=== PATIENT | male | born 1990 ===

== ENCOUNTER 2018-03-30 14:32 | Emergency (ER) | payer SELFPAY ==
[2018-03-30 14:48] VITALS: TEMP 98.1; BMI 33.4
--- NOTE | 2018-03-30 16:02 | RAD ---
HISTORY: chest pain COMPARISON: No prior. TECHNIQUE: Chest, one view. FINDINGS: LUNGS: No focal consolidation. Please note that chest x-ray has limited sensitivity for the detection of pulmonary masses. PLEURA: No significant pleural effusion identified. No definite pneumothorax . CARDIOVASCULAR: The cardiomediastinal silhouette appears within normal limits of size. OSSEOUS STRUCTURES: No acute osseous abnormality identified. VISUALIZED UPPER ABDOMEN: Unremarkable. OTHER FINDINGS: None. IMPRESSION: No focal consolidation, significant pleural effusion, or definite pneumothorax identified.
[2018-03-30 16:21] LABS: BASO # 0.03 K/mm3 (0.0-2.0); BASO % 0.5 % (0.0-3.0); EOS # 0.1 (0.0-0.7); EOS % 1.2 % (1.5-5.0); GRAN # 2.85 (1.4-6.5); GRAN % 49.1 % (50.0-68.0); HEMOGLOBIN 15.6 g/dL (14.0-18.0); LYMPH # 2.3 (1.2-3.4); LYMPH % 40.1 % (22.0-35.0); MEAN CELL VOLUME 86.2 fl (80.0-105.0); MEAN CORPUSCULAR HEMOGLOBIN 31.3 pg (25.0-35.0); MEAN CORPUSCULAR HGB CONC 36.3 g/dl (31.0-37.0); MEAN PLATELET VOLUME 10.4 fl (7.0-11.0); MONO # 0.5 (0.1-0.6); MONO % 9.1 % (1.0-6.0); RBC 4.99 10^6/uL (3.5-6.1); RED CELL DISTRIBUTION WIDTH 12.2 % (11.5-14.5); WHITE BLOOD COUNT 5.8 10^3/ul (4.5-11.0)
[2018-03-30 16:26] LABS: INR 1.04; PARTIAL THROMBOPLASTIN TIME 33.3 Seconds (25.1-36.5); PROTHROMBIN TIME 11.9 SECONDS (9.4-12.5)
[2018-03-30 16:29] LABS: ALB/GLOB RATIO 1.5 (1.1-1.8); ALBUMIN 4.7 g/dL (3.0-4.8); ALT/SGPT 38 U/L (7-56); AST/SGOT 34 U/L (17-59); BLOOD UREA NITROGEN 12 mg/dL (7-21); CALCIUM 9.6 mg/dL (8.4-10.5); GFR NON-AFRICAN AMERICAN > 60; LIPASE 180 U/L (23-300)
[2018-03-30 16:40] LABS: TROPONIN I < 0.01 ng/mL
--- NOTE | 2018-03-30 16:50 | ED PDOC ---
Arrival/HPI - General Historian: Patient - History of Present Illness Narrative History of Present Illness (Text): 03/30/18 16:46 27-year-old male presents today with left-sided chest pain radiating into the left arm for the past 2 days. Patient states the pain is intermittent. Patient states the pain is an achy sensation and a tightness that worsens with certain movements. Patient states occasionally he is feeling short of breath. He denies fevers or chills. Patient states 2 weeks ago he was treated for an upper respiratory tract infection with a Z-Luis. Patient denies palpitations. Patient denies any recent trauma or injury. Patient denies abdominal pain. No nausea vomiting diarrhea constipation. No medications have been taken for pain at home. Patient denies a history of cocaine or drug use. No other complaints. Time/Duration: Other (2 days) <Nikia Hdez - Last Filed: 03/30/18 18:25> <Ervin Mathew - Last Filed: 04/02/18 18:59> - General Chief Complaint: Chest Pain Time Seen by Provider: 03/30/18 15:15 Past Medical History - Provider Review Nursing Documentation Reviewed: Yes - Travel History Have you recently traveled outside [place] w/in the past 3 mons?: No - Psychiatric Hx Anxiety: Yes Hx Substance Use: No - Anesthesia Hx Anesthesia: No Hx Anesthesia Reactions: No Hx Malignant Hyperthermia: No <Nikia Hdez - Last Filed: 03/30/18 18:25> Family/Social History - Physician Review Nursing Documentation Reviewed: Yes Family/Social History: No Known Family HX, Unknown Family HX. denies: Hypertension, CAD/CO, Blood Clots Smoking Status: Never Smoked Hx Alcohol Use: No Hx Substance Use: No <Nikia Hdez - Last Filed: 03/30/18 18:25> Allergies/Home Meds <Nikia Hdez - Last Filed: 03/30/18 18:25> <Ervin Mathew - Last Filed: 04/02/18 18:59> Allergies/Adverse Reactions: Allergies No Known Allergies Allergy (Verified 03/30/18 14:45) Review of Systems - Review of Systems Constitutional: absent: Fatigue, Fevers Respiratory: SOB, Cough Cardiovascular: Chest Pain. absent: Palpitations Gastrointestinal: absent: Abdominal Pain, Constipation, Diarrhea, Nausea, Vomiting Genitourinary Male: absent: Dysuria, Frequency, Hematuria Musculoskeletal: Back Pain. absent: Arthralgias, Neck Pain Skin: absent: Rash, Pruritis Neurological: absent: Headache, Dizziness Psychiatric: Anxiety. absent: Depression, Suicidal Ideation <Nikia Hdez - Last Filed: 03/30/18 18:25> Physical Exam Vital Signs Reviewed: Yes Vital Signs Temp Pulse Resp BP Pulse Ox 03/30/18 14:45 98.1 F 71 19 138/75 H 100 Temperature: Afebrile Blood Pressure: Hypertensive Pulse: Regular Respiratory Rate: Normal Appearance: Positive for: Well-Appearing, Non-Toxic, Comfortable Pain Distress: None Mental Status: Positive for: Alert and Oriented X 3 - Systems Exam Head: Present: Atraumatic Mouth: Present: Moist Mucous Membranes Neck: Present: Normal Range of Motion Respiratory/Chest: Present: Clear to Auscultation, Good Air Exchange, Tender to Palpation (+ ttp over left pectoralis ). No: Respiratory Distress, Accessory Muscle Use Cardiovascular: Present: Regular Rate and Rhythm, Normal S1, S2. No: Murmurs, Tachycardic Abdomen: No: Tenderness, Distention, Peritoneal Signs, Rebound, Guarding Back: Present: Normal Inspection. No: CVA Tenderness, Midline Tenderness, Paraspinal Tenderness Upper Extremity: Present: Normal ROM Lower Extremity: Present: Normal ROM. No: Edema, CALF TENDERNESS Neurological: Present: GCS=15, Speech Normal Skin: Present: Warm, Dry, Normal Color. No: Rashes Psychiatric: Present: Alert, Oriented x 3 <Nikia Hdez T - Last Filed: 03/30/18 18:25> Vital Signs Temp Pulse Resp BP Pulse Ox 03/30/18 17:42 98.1 F 61 18 124/61 99 03/30/18 14:45 98.1 F 71 19 138/75 H 100 <Ervin Mathew - Last Filed: 04/02/18 18:59> Medical Decision Making ED Course and Treatment: 03/30/18 16:48 27yr old male with 2 day history of chest pain. cbc; wnl cmp; wnl trop; wnl ekg; sinus rhythm with marked sinus arrhythmia at 68 bpm normal axis normal intervals no ST elevations d-dimer; negative cxr; LUNGS: No focal consolidation. Please note that chest x-ray has limited sensitivity for the detection of pulmonary masses. PLEURA: No significant pleural effusion identified. No definite pneumothorax . CARDIOVASCULAR: The cardiomediastinal silhouette appears within normal limits of size. OSSEOUS STRUCTURES: No acute osseous abnormality identified. VISUALIZED UPPER ABDOMEN: Unremarkable. OTHER FINDINGS: None. IMPRESSION: No focal consolidation, significant pleural effusion, or definite pneumothorax identified. UA; wnl 03/30/18 17:29 pt reassessment; after toradol patient is feeling much better. denies pain. will d/c home to f/u with PMD. pt most likely with musculoskeletal chest pain advised immediate return is symptoms worsen or persist or if new concerning symptoms develop Impression: Chest pain Motrin every 6 hours as needed for pain Follow up with the primary care physician within the next 2 days Return immediately if symptoms worsen or persist or if new concerning symptoms develop. Reassessment Condition: Re-examined, Improved - Lab Interpretations Lab Results: 03/30/18 16:12 03/30/18 16:12 Lab Results 03/30/18 16:12: WBC 5.8, RBC 4.99, Hgb 15.6, Hct 43.0, MCV 86.2, MCH 31.3, MCHC 36.3, RDW 12.2, Plt Count 183, MPV 10.4, Gran % 49.1 L, Lymph % (Auto) 40.1 H, Charlton % (Auto) 9.1 H, Eos % (Auto) 1.2 L, Baso % (Auto) 0.5, Gran # 2.85, Lymph # (Auto) 2.3, Charl[place] # (Auto) 0.5, Eos # (Auto) 0.1, Baso # (Auto) 0.03 03/30/18 16:12: Sodium 141, Potassium 3.9, Chloride 103, Carbon Dioxide 28, Anion Gap 13, BUN 12, Creatinine 0.9, Est GFR ( Amer) > 60, Est GFR (Non- Af Amer) > 60, Random Glucose 103, Calcium 9.6, Total Bilirubin 1.6 H, AST 34, ALT 38, Alkaline Phosphatase 44, Lactate Dehydrogenase 508, Total Creatine Kinase 205, Troponin I < 0.01, Total Protein 8.0, Albumin 4.7, Globulin 3.2, Albumin/Globulin Ratio 1.5, Lipase 180 03/30/18 16:12: PT 11.9, INR 1.04, APTT 33.3, D-Dimer, Quantitative 114 - RAD Interpretation Radiology Orders: 03/30/18 15:15 CHEST PORTABLE [RAD] Stat - Medication Orders Current Medication Orders: Discontinued Medications Ketorolac Tromethamine (Toradol) 30 mg IVP STAT STA Stop: 03/30/18 16:38 <Nikia Hdez - Last Filed: 03/30/18 18:25> - Lab Interpretations Lab Results: 03/30/18 16:12 03/30/18 16:12 Lab Results 03/30/18 17:27: Urine Color Yellow, Urine Appearance Clear, Urine pH 7.0, Ur Specific [place] <= 1.005, Urine Protein Negative, Urine Glucose (UA) Negative, Urine Ketones Negative, Urine Blood Negative, Urine Nitrate Negative, Urine Bilirubin Negative, Urine Urobilinogen 0.2, Ur Leukocyte Esterase Negative 03/30/18 16:12: WBC 5.8, RBC 4.99, Hgb 15.6, Hct 43.0, MCV 86.2, MCH 31.3, MCHC 36.3, RDW 12.2, Plt Count 183, MPV 10.4, Gran % 49.1 L, Lymph % (Auto) 40.1 H, Charl[place] % (Auto) 9.1 H, Eos % (Auto) 1.2 L, Baso % (Auto) 0.5, Gran # 2.85, Lymph # (Auto) 2.3, Charl[place] # (Auto) 0.5, Eos # (Auto) 0.1, Baso # (Auto) 0.03 03/30/18 16:12: Sodium 141, Potassium 3.9, Chloride 103, Carbon Dioxide 28, Anion Gap 13, BUN 12, Creatinine 0.9, Est GFR ( Amer) > 60, Est GFR (Non- Af Amer) > 60, Random Glucose 103, Calcium 9.6, Total Bilirubin 1.6 H, AST 34, ALT 38, Alkaline Phosphatase 44, Lactate Dehydrogenase 508, Total Creatine Kinase 205, Troponin I < 0.01, Total Protein 8.0, Albumin 4.7, Globulin 3.2, Albumin/Globulin Ratio 1.5, Lipase 180 03/30/18 16:12: PT 11.9, INR 1.04, APTT 33.3, D-Dimer, Quantitative 114 - RAD Interpretation Radiology Orders: 03/30/18 15:15 CHEST PORTABLE [RAD] Stat - Medication Orders Current Medication Orders: Discontinued Medications Ketorolac Tromethamine (Toradol) 60 mg IM STAT STA Stop: 03/30/18 16:53 Last Admin: 03/30/18 17:09 Dose: 60 mg MAR Pain Assessment Document 03/30/18 17:09 EQ (Rec: 03/30/18 17:09 EQ [id number]) Pain Reassessment Is this a pain reassessment? No Sleep Is patient sleeping during reassessment? No Presence of Pain Presence of Pain Yes IM Administration Charges Document 03/30/18 17:09 EQ (Rec: 03/30/18 17:09 EQ [id number]) Charges for Administration # of IM Administrations 1 <Ervin Mathew - Last Filed: 04/02/18 18:59> - PA / [employer] / Resident Statement MD/ has reviewed & agrees with the documentation as recorded. <Ervin Mathew - Last Filed: 04/02/18 18:59> Disposition/Present on Arrival - Present on Arrival Any Indicators Present on Arrival: No History of DVT/PE: No History of Uncontrolled Diabetes: No Urinary Catheter: No History of Decub. Ulcer: No History Surgical Site Infection Following: None - Disposition Have Diagnosis and Disposition been Completed?: Yes Disposition Time: 16:50 Patient Plan: Discharge <Nikia Hdez - Last Filed: 03/30/18 18:25> <Ervin Mathew - Last Filed: 04/02/18 18:59> - Disposition Diagnosis: Chest pain Disposition: HOME/ ROUTINE Condition: GOOD Discharge Instructions (ExitCare): Chest Pain (ED) Additional Instructions: Motrin every 6 hours as needed for pain Follow up with the primary care physician within the next 2 days Return immediately if symptoms worsen or persist or if new concerning symptoms develop. Prescriptions: Ibuprofen [Motrin] 600 mg PO Q6H PRN #20 tab PRN Reason: pain/fever reduction Referrals: Radha Lopez MD [Staff Provider] - Follow up with primary Rojas Banks MD [Staff Provider] - Follow up with primary Suze Li MD [Medical Doctor] - Follow up with primary [facility] [Outside] - Follow up with primary Forms: [employer] ([place]er), WORK NOTE
[2018-03-30 17:44] VITALS: BP 124/61; PULSE 61; RESP 18; O2SAT 99
[2018-03-30 17:46] LABS: URINE BILIRUBIN NEGATIVE (NEGATIVE); URINE BLOOD NEGATIVE (NEGATIVE); URINE GLUCOSE (UA) NEGATIVE (NEGATIVE); URINE LEUKOCYTE ESTERASE NEGATIVE Leu/uL (NEGATIVE); URINE PROTEIN NEGATIVE mg/dL (<30 mg/dL); URINE UROBILINOGEN 0.2 E.U./dL (<1 E.U./dL)
[2018-03-30 18:01] LABS: URINE APPEARANCE CLEAR (CLEAR); URINE COLOR YELLOW (YELLOW)
--- NOTE | 2018-03-30 18:52 | CARD ---
APPROVED REPORT Date of service: 03/30/2018 EKG Measurement Heart [id number] <Conclusion> Sinus rhythm with marked sinus arrhythmia Otherwise normal ECG
== END 2018-03-30 18:30 | disposition home or self-care (01) ==
LOC: ED 14:32
DX: R07.9 Chest pain, unspecified (principal); F41.9 Anxiety disorder, unspecified
CPT/HCPCS: 71045; 80053; 81003; 82550; 83615; 83690; 84484; 85025; 85378; 85610; 85730; 93005; 96372; 99283; J1885